=== PATIENT | male | born 1975 | race African-American/Black ===

== ENCOUNTER 2017-03-11 20:52 | Inpatient (IN) ==
[2017-03-11] MEDS ORDERED: MORPHINE 2 MG/1 ML SYRINGE IV STA (21:00)
[2017-03-11] MEDS ORDERED: LACTATED RINGERS 500 ML IV STA (21:00)
[2017-03-11] MEDS ORDERED: SODIUM CHLORIDE 0.9% 1,000 ML IV STA (21:02)
[2017-03-11 21:25] LABS: Basophils % 0.4 % (0.0-0.8); Eosinophils # 0.1 10*3/uL (0.0-0.87); Eosinophils % 0.6 % (0.00-10.9); Hematocrit 38.6 VOL% (42.0-52.0); Hemoglobin 13.3 GM/DL (14.0-18.0); Immature Granulocytes % 1.1 %; Lymphocytes # 2.5 10*3/uL (1.4-4.0); Lymphocytes % 27.6 % (21.2-54.2); Mean Corpuscular HGB Conc 34.5 GM/DL (32-36); Mean Corpuscular Hemoglobin 31 PG (27-34); Mean Platelet Volume 10.4 FL (9.6-12.0); Monocytes # 0.7 10*3/uL (0.11-0.8); Monocytes % 7.3 % (1.7-12.7); Neutrophils # 5.6 10*3/uL (1.4-7.4); Platelet Count 206 T/CUMM (130-400); Red Blood Count 4.29 MC/CUMM (3.8-5.5); Red Cell Distribution Width 13.4 % (9.3-17.3); White Blood Count 8.9 T/CUMM (4-12)
[2017-03-11] MEDS ORDERED: MORPHINE 10 MG/1 ML VIAL ONE ×2 (21:28→22:07)
[2017-03-11 21:48] LABS: Albumin 4.1 G/DL (3.4-5.0); Bilirubin,Total 0.5 MG/DL (0.2-1.0); Calcium 8.7 MG/DL (8.5-10.1); Total Protein 6.9 G/DL (6.4-8.3)
[2017-03-11 21:49] LABS: INR 1.1; PT Patient Result 11.3 SECS; Partial Thromboplastin Time 24.5 SECS (0-40); Potassium 3.9 MMOL/L (3.5-5.1)
[2017-03-11] MEDS ORDERED: PROPOFOL 200 MG/20 ML VIAL IV ONE (22:11)
[2017-03-11] MEDS ORDERED: HYDROmorphone 2 MG/1 ML VIAL ONE (22:57)
[2017-03-11] MEDS ORDERED: HYDROmorphone 2 MG/1 ML VIAL IV STA (23:02)
[2017-03-12] MEDS ORDERED: ONDANSETRON 4 MG/2 ML VIAL IV PRN ×2 (01:00→12:58)
[2017-03-12] MEDS ORDERED: PROMETHAZINE 25 MG/1 ML VIAL IM PRN (01:00)
[2017-03-12] MEDS ORDERED: ACETAMINOPHEN 325 MG TABLET PO PRN (01:00)
[2017-03-12] MEDS ORDERED: MORPHINE 2 MG/1 ML SYRINGE IV STA (01:10)
[2017-03-12] MEDS ORDERED: DIPH/TET/ACEL PERT BOOSTER VACCINE 0.5 ML VIAL IM ONE ×2 (01:12→01:13)
[2017-03-12] MEDS ORDERED: MORPHINE 10 MG/1 ML VIAL IV STA (01:21)
[2017-03-12 01:29] LABS: Apearance,Urine Slightly Hazy (Clear); Bacteria,Urine Occasional /HPF (Few); Bilirubin,Urine Negative (Negative); Blood, Urine Large mg/dL (Negative); Glucose,Urine (UA) Negative (Negative); Hyaline Casts,Urine 1 /LPF (0-3); Ketones,Urine Negative (Negative); Mucus,Urine Occasional /LPF (Occasional); Nitrite,Urine Negative (Negative); Protein,Urine Negative; RBC,Urine 14 /HPF (0-4); Urine Color Yellow (Yellow); Urine Urobilinogen < 2.0 EU/DL (0.2-1.0); WBC,Urine 3 /HPF (0-6)
[2017-03-12] MEDS: SODIUM CHLORIDE 0.45% 1,000 ML IV SCH ×2 (01:30→18:19)
[2017-03-12 02:14] LABS: Barbiturates Screen,Urine Negative (Negative); Benzodiazepines Screen,Urine Negative (Negative); Cannabinoid Screen,Urine Positive (Negative); Opiate Screen,Urine Positive (Negative); Phencyclidine Screen,Urine Negative (Negative)
[2017-03-12] MEDS: HYDROmorphone 2 MG/1 ML VIAL IV PRN ×6 (04:40→20:17)
[2017-03-12] MEDS: PANTOPRAZOLE 40 MG TABLET PO SCH ×2 (07:20→08:01)
[2017-03-12] MEDS ORDERED: ceFAZolin 2,000 MG in PREMIX 1 EACH IV ONE (10:30)
[2017-03-12] MEDS ORDERED: LACTULOSE 20 GM/30 ML UDCUP PO PRN (12:34)
[2017-03-12] MEDS ORDERED: MAGNESIUM HYDROXIDE SUSP 30 ML UDCUP PO PRN (12:34)
[2017-03-12] MEDS ORDERED: MIDAZOLAM 2 MG/2 ML VIAL ONE (12:46)
[2017-03-12] MEDS ORDERED: fentaNYL 100 MCG/2 ML VIAL ONE (12:47)
[2017-03-12] MEDS ORDERED: PROPOFOL 200 MG/20 ML VIAL IV ONE (12:47)
[2017-03-12] MEDS ORDERED: ePHEDrine 50 MG/ML AMP ONE (12:47)
[2017-03-12] MEDS ORDERED: ONDANSETRON 4 MG/2 ML VIAL ONE ×2 (12:48→13:22)
[2017-03-12] MEDS ORDERED: ACETAMINOPHEN 1,000 MG/100 ML VIAL IV ONE (12:48)
[2017-03-12] MEDS ORDERED: KETOROLAC 30 MG/1 ML VIAL ONE (12:48)
[2017-03-12] MEDS ORDERED: SEVOFLURANE 1 UNIT/15 MINUTE INH ONE (12:48)
[2017-03-12] MEDS ORDERED: LACTATED RINGERS 1,000 ML IV ONE (12:48)
[2017-03-12] MEDS ORDERED: HYDROmorphone 2 MG/1 ML VIAL ONE (13:22)
[2017-03-12] MEDS: ceFAZolin 1,000 MG in SYRINGE 1 EACH IV SCH (20:17)
[2017-03-12] MEDS: LACTATED RINGERS 1,000 ML IV SCH (21:24)
[2017-03-13] MEDS: SODIUM CHLORIDE 0.45% 1,000 ML IV SCH ×3 (00:05→17:04)
[2017-03-13] MEDS: HYDROmorphone 2 MG/1 ML VIAL IV PRN ×3 (00:22→10:38)
[2017-03-13] MEDS: ceFAZolin 1,000 MG in SYRINGE 1 EACH IV SCH ×2 (04:17→12:06)
[2017-03-13] MEDS: LACTATED RINGERS 1,000 ML IV SCH ×2 (05:11→09:08)
[2017-03-13] MEDS: IBUPROFEN 400 MG TABLET PO SCH ×3 (09:08→20:12)
[2017-03-13] MEDS: PANTOPRAZOLE 40 MG TABLET PO SCH (09:09)
[2017-03-14] MEDS: SODIUM CHLORIDE 0.45% 1,000 ML IV SCH ×2 (02:03→10:12)
[2017-03-14] MEDS: IBUPROFEN 400 MG TABLET PO SCH ×2 (08:34→15:56)
[2017-03-14] MEDS: PANTOPRAZOLE 40 MG TABLET PO SCH (08:35)
[2017-03-14 11:30] VITALS: BP 143/87
== END 2017-03-14 15:31 | disposition home or self-care (01) | DRG 512 ==
LOC: EDUNIT# → EDBD → N.ED 20:52 → N.EDINP 23:56 → N.3E 03-12 00:14
PROVIDERS: ADMIT Surgery; ATTEND Orthopaedic Surgery